=== PATIENT | male | born 1950 | race Caucasian/White ===

== ENCOUNTER 2020-12-13 14:54 | Outpatient (CLI) | payer OTHER, SELFPAY | END 2020-12-13 14:55 | disposition home or self-care (01) | LOC: ANHCOVIDVC 14:55 | PROVIDERS: PCP Urology | DX: Z23 Encounter for immunization (principal) | CPT/HCPCS: 0001A; 91300 ==

== ENCOUNTER 2021-01-03 14:44 | Outpatient (CLI) | payer OTHER, SELFPAY | END 2021-01-03 14:45 | disposition home or self-care (01) | LOC: ANHCOVIDVC 14:44 | PROVIDERS: PCP Urology | DX: Z23 Encounter for immunization (principal) | CPT/HCPCS: 0002A; 91300 ==

== ENCOUNTER → 2021-09-02 11:17 | Outpatient (CLI) | payer OTHER, SELFPAY ==
--- NOTE | ~2021-09-02 | US_ITS ---
EXAMINATION: US venous doppler [facility] DATE: 09/02/2021 11:40 INDICATION: Left lower limb pain TECHNIQUE: Grayscale ultrasound images without and with compression and Doppler ultrasound images of the left lower extremity veins were obtained. COMPARISON: 08/03/2012 FINDINGS: The visualized portions of left common femoral vein, profunda (deep) femoral vein, femoral vein, popl iteal vein, peroneal trunk, peroneal veins, posterior tibial veins, gastrocnemius vein, soleal veins and greater saphenous vein outflow are patent. IMPRESSION: 1. No deep venous thrombosis in the left lower limb. Reviewed, dictated and finalized at location B. [employer] DIRECT [employer] PROFESSIONAL
== END ==
PROVIDERS: PCP Physician Assistant; Visit Provider Physician Assistant
DX: M79.605 Pain in left leg (principal); M62.838 Other muscle spasm
CPT/HCPCS: 93971

== ENCOUNTER → 2022-01-23 09:36 | Outpatient (CLI) | payer OTHER, SELFPAY ==
--- NOTE | ~2022-01-23 | XR_ITS ---
EXAMINATION: [id number] INDICATION: Rib deformity TECHNIQUE: A frontal view of the chest and 3 views of the bilateral ribs were obtained. COMPARISON: None. FINDINGS: A calcified nodule of the right lung is consistent with old granulomatous disease. The lung s are free of acute opacities. The cardiomediastinal silhouette is normal. No displaced rib fracture is identified. IMPRESSION: 1. No acute cardiopulmonary abnormality or evidence of displaced rib fracture. Reviewed, dictated and finalized at location B.
== END ==
PROVIDERS: PCP Physician Assistant; Visit Provider Physician Assistant
DX: M95.2 Other acquired deformity of head (principal)
CPT/HCPCS: 71111

== ENCOUNTER 2025-08-10 11:46 | Outpatient (CLI) | payer OTHER, SELFPAY ==
--- NOTE | ~2025-08-10 | XR_ITS ---
EXAMINATION: XR chest 2V DATE: 08/10/2025 12:16 INDICATION: Shortness of breath TECHNIQUE: Frontal and lateral views of the chest were obtained. COMPARISON: February 11, 2014 FINDINGS: Small granulomatous change right lung; lungs are otherwise clear. Heart size normal. No pneumothorax or subphrenic free air seen. IMPRESSION: 1. No active disease identified. Reviewed, dictated and finalized at location A. [employer] MEAN
== END 2025-08-10 11:47 | disposition home or self-care (01) ==
LOC: MICIMG 11:54
PROVIDERS: PCP Nurse Practitioner Adult Health; Visit Provider Internal Medicine Cardiovascular Disease
DX: R06.02 Shortness of breath (principal)
CPT/HCPCS: 71046